=== PATIENT | female | born 1965 | race Caucasian/White ===

== ENCOUNTER → 2023-11-30 | Emergency (ER) | payer OTHER ==
[~2023-11-30] MED LIST: LIDOCAINE 4% PATCH ONE; MORPHINE 4 MG/ML SYR ONE; ONDANSETRON 4 MG/2 ML VIAL ONE
[2023-11-30 09:19] LABS: Absolute Basophils 0.1 K/uL (0-0.5); Absolute Eosinophils 0.1 K/uL (0-0.5); Absolute Lymphocytes (CBC) 2.6 K/uL (0.7-4.9); Absolute Monocytes 0.4 K/uL (0.1-1.3); Absolute Neutrophil 4.5 K/uL (1.8-8.0); Basophils % 1.4 % (0-1.3); Eosinophils % 1.7 % (0-4.4); Hematocrit 42.6 % (36.0-45.0); Hemoglobin 14.5 g/dL (12.0-15.0); Lymphocytes % 33.4 % (15.3-44.8); MCH 30.6 pg (27.0-35.0); MCHC 33.9 g/dL (32.0-36.0); MCV 90.2 fL (80-100); MPV 7.4 fL (7.6-11.3); Monocytes % 5.5 % (3.3-12.3); Nucleated Red Blood Cells % 0.2 % (0-0); Platelets 285 thou/uL (152-406); RBC Red Blood Cell Count 4.73 M/uL (3.86-4.86); Red Cell Distribution Width 13.1 % (12.1-15.2)
--- NOTE | 2023-11-30 09:42 | RAD REPORT ---
EXAM DESCRIPTION: Randell Single View11/30/2023 9:18 am CLINICAL HISTORY: CHEST PAIN COMPARISON: No comparisons TECHNIQUE: Portable AP view of the chest. FINDINGS: Decreased inspiratory effort somewhat limits evaluation. The lungs are clear. No pneumoth orax or effusion. The cardiomediastinal contours are unremarkable. IMPRESSION: No acute cardiopulmonary process.
[2023-11-30 10:53] LABS: Anion Gap 8.9 mEq/L (5.0-15.0); Troponin High Sensitivity 4.2 pg/mL (<58.9)
[2023-11-30 10:54] LABS: Potassium 3.9 mEq/L (3.5-5.1)
--- NOTE | 2023-11-30 12:38 | EDPHYS ---
Physician Documentation [facility] Name: Letty Velasquez Age: 58 yrs Sex: Female : 1965 Arrival Date: 11/30/2023 Time: 08:36 Bed 6 Private MD: ED Physician Andrez Vo HPI: 11/29 08:39 This 58 yrs old Female presents to ER via Unassigned with complaints of Chest Pain. ec2 08:39 Patient arrives today for evaluation of left upper chest pain. States that pain been ec2 ongoing for couple days. Patient reports no specific alleviating or exacerbating factors. Reports history of diabetes. Denies any exertional component. States that pressing on the area worsens the pain. States the pain is episodic.. Historical: - Allergies: 08:41 NSAIDS; ph - PMHx: 08:41 Diabetes mellitus; Hypercholesterolemia; Hypertensive disorder; Asthma; ph - Immunization history:: Adult Immunizations unknown. - Social history:: Smoking status: Patient denies any tobacco usage or history of. Patient/guardian denies using alcohol. ROS: 08:39 Constitutional: as per hpi ec2 Exam: 08:39 Constitutional: GEN: NAD Head: atraumatic Eyes: EOMI Ears: External ears are ec2 normal. CV: regular rate LUNGS: no respiratory distress, no wheezes, rales, rhonchi ABD: non-distended SKIN: no evidence of rashes MSK: no evidence of trauma, left upper chest wall with reproducible TTP, no deformities or crepitus appreciated. NEURO: moves all extremities equally Vital Signs: 08:39 BP 147 / 102; Pulse 73; Resp 18; Temp 97.8; Pulse Ox 100% on R/A; aw1 08:39 BP 136 / 79; Pulse 74; Resp 18; Temp 97.8; Pulse Ox 99% on R/A; Weight 84.37 kg; Height ph 5 ft. 2 in. ; 08:55 BP 136 / 79; Pulse 70; Resp 16 S; Pulse Ox 100% on R/A; Pain 8/10; kc6 10:45 BP 122 / 78; Pulse 75; Resp 16 S; Pulse Ox 95% on R/A; kc6 11:52 BP 123 / 76; Pulse 62; Resp 16 S; Pulse Ox 97% on R/A; kc6 12:58 BP 128 / 76; Pulse 61; Resp 18 S; Pulse Ox 98% on R/A; iw 08:39 Body Mass Index 34.02 (84.37 kg, 157.48 cm) ph 08:55 Pain Scale: Adult kc6 MDM: 08:38 Patient medically screened. ec2 08:39 Data reviewed: vital signs. ED course: Patient arrives today for left upper chest wall ec2 pain. Examination remarkable for well-appearing nontoxic individual is otherwise in no acute distress with reproducible chest wall TTP. Will obtain cardiac evaluation, treat patient pain with morphine and reassess. Currently evaluating for ACS, doubt PE, doubt dissection. Additionally considering MSK pain. . 08:57 ED course: EKG independently reviewed and interpreted by me, shows normal sinus rhythm, ec2 rate of 65, no acute ST segment elevations, nonconcerning intervals.. 09:48 ED course: CBC reassuring, chest x-ray shows no acute intrathoracic process. . ec2 11:01 ED course: Metabolic profile reassuring, troponin within normal ranges. Will obtain ec2 repeat EKG and troponin as well. . 11:45 ED course: Repeat EKG independently reviewed and interpreted by me, shows normal sinus ec2 rhythm, rate of 72, no acute ST segment elevations, nonconcerning intervals. . 12:29 ED course: Is within normal ranges. Will discharge home have follow-up with primary ec2 care doctor. Return precautions given.. 03 08:39 Order name: Basic Metabolic Panel; Complete Time: 11:01 ec2 11/29 08:39 Order name: CBC with Diff; Complete Time: 09:48 ec2 11/29 08:39 Order name: Troponin HS; Complete Time: 11:01 ec2 11/29 11:18 Order name: Troponin High Sensitivity; Complete Time: 12:29 ec2 11/29 08:39 Order name: XRAY Chest (1 view); Complete Time: 09:48 ec2 11/29 08:39 Order name: EKG; Complete Time: 08:39 ec2 11/29 08:39 Order name: Cardiac monitoring; Complete Time: 08:53 ec2 11/29 08:39 Order name: EKG - Nurse/Tech; Complete Time: 08:53 ec2 11/29 08:39 Order name: IV Saline Lock; Complete Time: 08:53 ec2 11/29 08:39 Order name: Labs collected and sent; Complete Time: 08:53 ec2 11/29 08:39 Order name: O2 Per Protocol; Complete Time: 08:46 ec2 11/29 08:39 Order name: O2 Sat Monitoring; Complete Time: 08:46 ec2 11/29 08:57 Order name: Labs - recollect needed: purple and green top; Complete Time: 09:13 bc6 11/29 09:22 Order name: Labs - recollect needed: green top; Complete Time: 09:52 bc6 11/29 11:18 Order name: EKG - Nurse/Tech; Complete Time: 11:47 ec2 11/29 11:18 Order name: Misc. Order: repeat ekg/trop; Complete Time: 11:47 ec2 Administered Medications: 08:55 Drug: morphine IVP or IV 4 mg IVP once over 4 mins Route: IVP; Infused Over: 4 mins; kc6 Site: left antecubital; 11:56 Follow up: Response: No adverse reaction; Pain is unchanged, physician notified; RASS: kc6 Alert and Calm (0) 08:55 Drug: Ondansetron IVP 4 mg IVP once; over 2 minutes Route: IVP; Site: left antecubital; kc6 11:56 Follow up: Response: No adverse reaction kc6 11:51 Drug: Lidoderm Topical Patch 5 % (700 mg/patch) 1 patches Topical once; leave on for 12 kc6 hours; cover most painful area; may cut into smaller pieces Route: Topical; Site: anterior chest wall; 12:59 Follow up: Response: No adverse reaction iw Disposition Summary: 11/30/23 12:38 Discharge Ordered Notes: Location: Home ec2 Condition: Stable ec2 Diagnosis - Costochondritis ec2 Followup: ec2 - With: Private Physician - When: - Reason: Re-evaluation by your physician Discharge Instructions: - Discharge Summary Sheet ec2 - Costochondritis, [id number] ec2 Forms: - Work release form ll1 - Medication Reconciliation Form ec2 - Thank You Letter ec2 - Antibiotic Education ec2 - Prescription Opioid Use ec2 - Patient Portal Instructions ec2 - Leadership Thank You Letter ec2 Prescriptions: - methocarbamol 500 mg Oral tablet - take 2 tablets ORAL route 4 times per day; 30 tablet; Refills: 0, Product ec2 Selection Permitted Signatures: Dispatcher [employer] Dahiana Johnston RN RN [facility], BOUCHRA Tate RN kc6 [place]in[place]6 Andrez Vo MD MD ec2 Shivani Bailey RN iw
--- NOTE | 2023-11-30 12:38 | ER ---
Nurse's Notes [facility] Name: Letty Velasquez Age: 58 yrs Sex: Female : 1965 Arrival Date: 11/30/2023 Time: 08:36 Bed 6 Private MD: Diagnosis: Costochondritis Presentation: 11/29 08:39 Chief complaint: EMS states: L sided chest pain that started yesterday, worse today, ph also c/o dizziness and nausea, persistent cough since month, chest pain worse with cough or deep breathing. Coronavirus screen: Vaccine status: Patient reports receiving the 1st dose of the Covid vaccine. Ebola Screen: No symptoms or risks identified at this time. Initial Sepsis Screen: Does the patient meet any 2 criteria? No. Patient's initial sepsis screen is negative. Does the patient have a suspected source of infection? No. Patient's initial sepsis screen is negative. Risk Assessment: Do you want to hurt yourself or someone else? Patient reports no desire to harm self or others. Onset of symptoms was November 30, 2023. 08:39 Method Of Arrival: EMS: [facility] 08:39 Acuity: WILBERT 2 ph Triage Assessment: 08:41 General: Appears in no apparent distress. uncomfortable, well groomed, Behavior is ph calm, cooperative. Pain: Complains of pain in anterior aspect of left upper chest. Cardiovascular: Reports chest pain, lightheadedness, Capillary refill < 3 seconds in bilateral fingers Rhythm is sinus rhythm. Historical: - Allergies: 08:41 NSAIDS; ph - PMHx: 08:41 Diabetes mellitus; Hypercholesterolemia; Hypertensive disorder; Asthma; ph - Immunization history:: Adult Immunizations unknown. - Social history:: Smoking status: Patient denies any tobacco usage or history of. Patient/guardian denies using alcohol. Screenin:54 [facility] ED Fall Risk Assessment (Adult) History of falling in the last 3 months, ph including since admission No falls in past 3 months (0 pts) Confusion or Disorientation No (0 pts) Intoxicated or Sedated No (0 pts) Impaired Gait No (0 pts) Mobility Assist Device Used No (0 pt) Altered Elimination No (0 pt) Score/Fall Risk Level 0 - 2 = Low Risk Oriented to surroundings, Maintained a safe environment, Assessed \T\ reinforced patient's understanding of fall precautions, Hourly rounding (assess needs \T\ fall precautionary measures) done. Abuse screen: Denies threats or abuse. Denies injuries from another. Nutritional screening: No deficits noted. Tuberculosis screening: No symptoms or risk factors identified. Assessment: 08:52 General: Appears in no apparent distress. comfortable, well groomed, Behavior is ph cooperative, appropriate for age, anxious, Denies fever. Pain: Complains of pain in anterior aspect of left upper chest Pain does not radiate. Quality of pain is described as sharp, pinching, Pain began 1 day ago. Is intermittent, Aggravated by cough. Neuro: Level of Consciousness is awake, alert, obeys commands, Oriented to person, place, time, situation. Cardiovascular: Reports chest pain, lightheadedness, shortness of breath, Capillary refill < 3 seconds in bilateral fingers Patient's skin is warm and dry. Rhythm is sinus rhythm Chest pain quality is sharp, stabbing, is located in left anterior chest wall began 1 day ago is aggravated by breathing. Respiratory: Reports cough that is Airway is patent Respiratory effort is even, unlabored, Respiratory pattern is regular, symmetrical. GI: Reports nausea, Patient currently denies abdominal pain, diarrhea, vomiting. Derm: Skin is pink, warm \T\ dry. Musculoskeletal: Circulation, motion, and sensation intact. Range of motion: intact in all extremities. 09:52 Reassessment: Patient appears in no apparent distress at this time. No changes from kc6 previously documented assessment. Patient and/or family updated on plan of care and expected duration. Pain level reassessed. Patient is alert, oriented x 3, equal unlabored respirations, skin warm/dry/pink. 10:52 Reassessment: Patient appears in no apparent distress at this time. No changes from kc6 previously documented assessment. Patient and/or family updated on plan of care and expected duration. Pain level reassessed. Patient is alert, oriented x 3, equal unlabored respirations, skin warm/dry/pink. Patient states symptoms have not improved. 11:51 Reassessment: Patient appears in no apparent distress at this time. No changes from kc6 previously documented assessment. Patient and/or family updated on plan of care and expected duration. Pain level reassessed. Patient is alert, oriented x 3, equal unlabored respirations, skin warm/dry/pink. Vital Signs: 08:39 BP 147 / 102; Pulse 73; Resp 18; Temp 97.8; Pulse Ox 100% on R/A; aw1 08:39 BP 136 / 79; Pulse 74; Resp 18; Temp 97.8; Pulse Ox 99% on R/A; Weight 84.37 kg; Height ph 5 ft. 2 in. ; 08:55 BP 136 / 79; Pulse 70; Resp 16 S; Pulse Ox 100% on R/A; Pain 8/10; kc6 10:45 BP 122 / 78; Pulse 75; Resp 16 S; Pulse Ox 95% on R/A; kc6 11:52 BP 123 / 76; Pulse 62; Resp 16 S; Pulse Ox 97% on R/A; kc6 12:58 BP 128 / 76; Pulse 61; Resp 18 S; Pulse Ox 98% on R/A; iw 08:39 Body Mass Index 34.02 (84.37 kg, 157.48 cm) ph 08:55 Pain Scale: Adult 6 ED Course: 08:38 Patient arrived in ED. ph 08:38 Andrez Vo MD is Attending Physician. ec2 08:41 Triage completed. ph 08:42 Arm band placed on Patient placed in an exam room, on a stretcher, on radiation monitor, ph on pulse oximetry. 08:46 Lea Loya, BOUCHRA is Primary Nurse. kc6 08:47 Initial lab(s) drawn, by me, sent to lab. EKG done, by ED staff. aw1 08:52 EKG done, by ED staff, reviewed by Andrez Vo MD. Patient maintains SpO2 saturation ph greater than 95% on room air. 08:53 Maintain EMS IV. Dressing intact. Good blood return noted. Site clean \T\ dry. Gauge \T\ aw 1 site: 20G SL R AC. 08:53 Basic Metabolic Panel Sent. aw1 08:54 CBC with Diff Sent. aw1 08:54 Troponin HS Sent. aw1 08:55 Patient has correct armband on for positive identification. Bed in low position. Call ph light in reach. Side rails up X2. Client placed on continuous cardiac and pulse oximetry monitoring. NIBP monitoring applied. panel monitor on. Door closed. Noise minimized. Warm blanket given. Verbal reassurance given. 09:14 Warm blanket given. aw1 09:14 Lab(s) recollected, by me, sent to lab. aw1 09:20 XRAY Chest (1 view) In Process Unspecified. EDMS 09:51 Lab(s) recollected, by me, sent to lab. aw1 12:58 Provided Education on: follow up, rx teaching . iw 12:58 No provider procedures requiring assistance completed. IV discontinued, intact, iw bleeding controlled, No redness/swelling at site. Pressure dressing applied. Administered Medications: 08:55 Drug: morphine IVP or IV 4 mg IVP once over 4 mins Route: IVP; Infused Over: 4 mins; kc6 Site: left antecubital; 11:56 Follow up: Response: No adverse reaction; Pain is unchanged, physician notified; RASS: kc6 Alert and Calm (0) 08:55 Drug: Ondansetron IVP 4 mg IVP once; over 2 minutes Route: IVP; Site: left antecubital; kc6 11:56 Follow up: Response: No adverse reaction kc6 11:51 Drug: Lidoderm Topical Patch 5 % (700 mg/patch) 1 patches Topical once; leave on for 12 kc6 hours; cover most painful area; may cut into smaller pieces Route: Topical; Site: anterior chest wall; 12:59 Follow up: Response: No adverse reaction iw Medication: 08:55 VIS not applicable for this client. ph Outcome: 12:38 Discharge ordered by . ec2 12:58 Discharged to home ambulatory, iw 12:58 Condition: stable 12:58 Discharge instructions given to patient, Instructed on discharge instructions, follow up and referral plans. medication usage, Demonstrated understanding of instructions, follow-up care, medications, Prescriptions given X 1, 12:59 Patient left the ED. iw Signatures: Dispatcher [employer] Shivani Carver, RN RN iw Dahiana Cantu RN RN ph Lea Loya RN RN kc6 Lesa Chery aw1 Andrez Vo MD MD ec2 Corrections: (The following items were deleted from the chart) 08:55 08:39 BP 136 / 79; Pulse 74bpm; Resp 8bpm; Pulse Ox 99% RA; Temp 97.8F; 84.37 kg; ph Height 5 ft. 2 in.; BMI: 34.0; ph 08:55 08:52 General: Appears in no apparent distress. comfortable, well groomed, Behavior is ph calm, cooperative, appropriate for age, Denies fever, ph
[2023-11-30 13:07] VITALS: TEMP 97.8
[2023-11-30 13:34] VITALS: BP 128/76; O2SAT 98
--- NOTE | 2023-12-01 17:25 | EKG ---
Test Date: 2023-11-30 Test Time: 10:39:10 Manager Data: KALEY MEASUREMENT RESULTS: Intervals: Rate: 72 [place]: 130 QRSD: 72 QT: 412 QTc: 451 [place]: P: 40 [place]: 130 QRS: 51 T: 40 INTERPRETIVE STATEMENTS: Normal sinus rhythm Low voltage QRS Borderline ECG Compared to ECG 11/30/2023 08:39:25 No significant changes Electronically Signed On 12-01-23 17:20:50 CDT by William Ramirez
--- NOTE | 2023-12-01 17:27 | EKG ---
Test Date: 2023-11-30 Test Time: 08:39:25 [place] Ceiling Installer: JANELL MEASUREMENT RESULTS: Intervals: Rate: 65 OK: 134 QRSD: 78 QT: 376 QTc: 391 [place]: P: 35 OK: 134 QRS: 47 T: 37 INTERPRETIVE STATEMENTS: Normal sinus rhythm Low voltage QRS Borderline ECG No previous ECG available for comparison Electronically Signed On 12-01-23 17:21:15 CDT by William Ramirez
== END ==
LOC: EDBD 08:36 → ER 08:36
DX: M94.0 Chondrocostal junction syndrome [Tietze] (principal); I10 Essential (primary) hypertension; Z88.6 Allergy status to analgesic agent
CPT/HCPCS: 93005 ×2; 85025; 80048; 36415; 84484 ×2; 71045; 96375; 96374; 99285; J2001; J2405